=== PATIENT | male | born 1945 | race Caucasian/White ===

== ENCOUNTER 2024-06-07 11:43 | Emergency (ER) | payer MEDICARE, SELFPAY ==
[2024-06-07 12:02] VITALS: BP 142/94; PULSE 77; RESP 16; TEMP 37; O2SAT 100
--- NOTE | 2024-06-07 12:12 | ED_ITS ---
HPI - Abdominal Pain General Chief Complaint: Abdominal Pain Stated Complaint: STOMACH PAIN/ARM PAIN Time Seen by Provider: 06/07/24 12:13 Source: patient, RN notes reviewed and old records reviewed Mode of arrival: ambulatory Limitations: no limitations History of Present Illness HPI narrative: 79-year-old male presents to the [facility] with intermittent stomach discomfort and bloating this is been going on for 2 weeks. Patient states that it started after he was shoveling about 2 weeks ago. Has been intermittent. Has taken Mylanta. Denies any fevers. Denies pain currently. Denies any chest pain or shortness of breath. Denies any nausea or vomiting during these episodes. States that it started again last night in middle of the night, unsure of the time, resolved approximately 8:00 a.m. this morning. Had tried calling primary care provider, did not return phone call today Has an appointment scheduled on Tuesday for same complaint. Onset (ago): week(s) (2) Related Data Home Medications ?Medication ?Instructions ?Recorded ?Confirmed ?Last Taken ?Type travoprost 0.004 % eye drops 1 drp EACH EYE QPM 10/26/22 06/07/24 Unknown History timolol maleate 0.5 % eye drops drp 06/07/24 Unknown History Allergies Allergy/AdvReac Type Severity Reaction Status Date / Time No Known Allergies Allergy Verified 06/07/24 12:07 Review of Systems Review of Systems: All systems reviewed & are unremarkable except as noted in HPI and below Constitutional: Constitutional: Reports no additional constitutional complaints ENT: Reports system reviewed and no additional complaints, except as documented Cardiovascular: Cardiovascular: Reports no additional cardiovascular comp laints, Denies chest pain and Denies dyspnea Respiratory: Respiratory: Reports no additional respiratory complaints, Denies chest congestion, Denies cough and Denies dyspnea Gastrointestinal: Gastrointestinal: Reports as per HPI, Reports abdominal pain, Reports belching, Reports bloating and Denies vomiting Musculoskeletal: Musculoskeletal: Reports no additional musculoskeletal complaints Integumentary/Breasts: Skin/Breast: Reports system reviewed and no additional complaints, except as docu [facility] Surgical History Surgical History History of right inguinal hernia repair (2007) History of left inguinal hernia repair (2018) Family History Family History Mother Family history of Alzheimer's disease Other Family history of cardiovascular disease Family history of malignant neoplasm Social History Social History Smoking status: Never smoker Alcohol intake: current Lack of Transportation: No Lack of Food: Never True Current Housing: I Have Housing Concerned About Future Housing: No Difficulty Paying Gas/Electric Bills: No Difficulty Paying for Meds: No Currently Unemployed: No Education: Trade/Vocational Certificate Difficulty w/ Childcare or Family Care: No Comments At the time of my signature, I reviewed and agree with the nursing past medical, surgical, social, and family history. There is no relevant family history pertinent to the patient complaint. Exam Const: General: cooperative, healthy appearing, comfortable, no acute distress, well developed, alert and well nourished Nutritional Appearance: well nourished Orientation/consciousness: patient oriented x3 Limitations: no limitations HENMT: Head: normal to inspection Eyes: General: appearance normal, both eyes and all related structures Alignment and Position: alignment normal Neck: Neck: normal visual inspection, full ROM, no lymphadenopathy and no meningeal signs Chest: Chest palpation & inspection: normal inspection of the chest Resp: Effort & Inspection: normal respiratory effort and able to speak in complete sentences Auscultation: clear to auscultation bilaterally, no crackles, no rales, no rhonchi and no wheezes Cardio: Rate: regular rate GI: GI Palp: No abdominal tenderness, Yes Soft to palpation, No Tenderness to palpation present (GI) and No Guarding due to palpation present (GI) Auscultation: normal bowel sounds Skin: General skin exam: normal color and no rashes or lesions noted Neuro: General: patient oriented x3, gait normal, moves all extremities and no meningeal signs Cognition (Neuro): normal cognition Speech: normal speech Gait exam (Neuro): Normal gait present Extrem: General: normal to inspection, full ROM, capillary refill normal and normal gait Psych: Appearance: grossly normal and well kempt Mental Status: mental status grossly normal Speech and movement: Normal speech and movement present and Clear speech present Affect: normal affect Attitude: cooperative Course Course Level of Care: Express Care Visit Vital Signs Vital signs: Vital Signs Temperature 98.6 F 06/07/24 12:02 Pulse Rate 77 06/07/24 12:02 Respiratory Rate 16 06/07/24 12:02 Blood Pressure 142/94 H 06/07/24 12:02 Pulse Oximetry 100 06/07/24 12:02 Temperature 98.6 F 06/07/24 12:02 Pulse Rate 77 06/07/24 12:02 Respiratory Rate 16 06/07/24 12:02 Blood Pressure 142/94 H 06/07/24 12:02 Pulse Oximetry 100 06/07/24 12:02 Reviewed MDM - Abdominal Pain MDM Narrative Medical decision making narrative: Patient presents with , sitting comfortably in exam room. Nontoxic, vitals stable except blood pressure mildly elevated Patient presents with intermittent abdominal discomfort for 2 weeks associated with some bloating. States that he takes Mylanta and the symptoms improved. Has an appointment Tuesday with his primary care provider Denies any signs or symptoms currently during exam. No acute findings noted on exam. Patient appropriate for outpatient treatment with signs and symptoms proceed to the emergency room which him and his both verbalized understand Discharge instructions reviewed with patient, as well as provided in writing per nursing staff. The instructions also include specific and strict return/GO TO THE ER as well as f/u information. All questions have been answered, and the patient deny any further questions with discharge and discharge plan. Some parts of this dictation were generated by voice recognition software and may contain typographical and/or grammatical inaccuracies. Differential Diagnosis Differential diagnosis: Likely abdominal pain, constipation, diverticulitis, endometriosis, gastroenteritis, pancreatitis, small bowel obstruction and other (Cholecystitis, cholelithiasis) Critical Care Time Critical Care Time Critical Care Time: No Discharge Plan Discharge Clinical Impression: Intermittent abdominal pain Patient Disposition: Home, Self-Care Condition: Stable Instructions: Antibiotic Form, Gallstones (ED), Acute Abdominal Pain (ED) Additional Instructions: Keep your diet very simple. Nothing fried, greasy, spicy or highly processed Follow-up with primary care provider as already scheduled For new or worsening symptoms go directly to the emergency room Patient Language: Greek Prescriptions: No Action timolol maleate 0.5 % drops travoprost 0.004 % drops 1 drp EACH EYE QPM ipratropium bromide 42 mcg (0.06 %) spray,non-aerosol 2 spray intranasal TID PRN (Reason: runny nose) Qty: 15 5RF Rx Instructions: administer into each nostril alprazolam 0.5 mg tablet 0.5 mg PO BID PRN (Reason: anxiety) Qty: 15 0RF ciprofloxacin-dexamethasone 0.3-0.1 % drops,suspension 3 drp EACH EAR BID Qty: 7.5 0RF Follow-up/Referrals: Maximiliano Martinez MD [Primary Care Provider] - 1 Week ([facility] follow- up) Time of Disposition: 12:26
== END 2024-06-07 12:32 | disposition home or self-care (01) ==
PROVIDERS: Emergency Provider Nurse Practitioner; PCP Family Medicine Adolescent Medicine
DX: R10.9 Unspecified abdominal pain (principal)
CPT/HCPCS: 99211; G0463

== ENCOUNTER 2024-06-29 09:21 | Outpatient (CLI) | payer MEDICARE, SELFPAY ==
--- NOTE | 2024-06-29 09:27 | EST_ITS ---
Patient Info Name: Ishaan Wilson Age: 79 years : 1945 Gender: Male Ht: 71 in Wt: 180 lbs BSA: 2.03 m2 HR: 81 bpm BP: 132 / 97 mmHg Exam Date: 06/29/2024 9:47 AM Exam Location: Echo Lab Patient Status: Outpatient Admit Date: 06/29/2024 Staff Ordering Physician: Maximiliano Martinez MD Electrical Automation Engineer: Sasha Hendrickson RDCS Attending Provider: DR. ELLIOTT Referring Physician: Juan MARTINEZ; Exercise Technologist: Sasha Hendrickson RDCS Exercise Physician: Paul Elliott DO Exam Type: CA stress echo Study Info Indications R07.9 - Chest pain, unspecified Treadmill exercise stress echocardiogram is performed. Summary 1. 1. Negative Iraj exercise stress test for ischemic ST changes by ECG criteria. 2. 2. Poor functional capacity, achieving 4 METs of workload. 3. 3. Rapid HR response to exercise. 4. 4. Appropriate HR recovery at 1 minute post exercise. 5. 5. Abnormal stress echocardiogram for ischemia by wall motion analysis suggesting LM or triple vessel disease. 6. 6. Patient informed of the above results. Stress Echo Findings Left Ventricle LV more dilated with stress test and EF decreased to global 15-20%. Left Ventricle LV moderately dilated with global LV dysfunction with EF 35-40%. Protocol: Iraj Stress ECG Details Stage: REST Duration (min): 1 min : 5 sec Speed (mph): 0.0 Grade (%): 0 HR (bpm): 81 SBP (mmHg): 132 DBP (mmHg): 97 METS: --- Stage: REST Duration (min): 14 min : 9 sec Speed (mph): 0.0 Grade (%): 0 HR (bpm): 90 SBP (mmHg): 132 DBP (mmHg): 97 METS: --- Stage: STAGE 1 Duration (min): 1 min : 0 sec Speed (mph): 1.7 Grade (%): 10 HR (bpm): 121 SBP (mmHg): 132 DBP (mmHg): 97 METS: --- Stage: STAGE 1 Duration (min): 2 min : 0 sec Speed (mph): 1.7 Grade (%): 10 HR (bpm): 140 SBP (mmHg): 132 DBP (mmHg): 97 METS: --- Stage: STAGE 1 Duration (min): 2 min : 1 sec Speed (mph): 0.0 Grade (%): 0 HR (bpm): 141 SBP (mmHg): 132 DBP (mmHg): 97 METS: --- Stage: RECOVERY Duration (min): 0 min : 58 sec Speed (mph): 0.0 Grade (%): 0 HR (bpm): 134 SBP (mmHg): 120 DBP (mmHg): 47 METS: --- Stage: RECOVERY Duration (min): 1 min : 58 sec Speed (mph): 0.0 Grade (%): 0 HR (bpm): 129 SBP (mmHg): 120 DBP (mmHg): 47 METS: --- Stage: RECOVERY Duration (min): 2 min : 58 sec Speed (mph): 0.0 Grade (%): 0 HR (bpm): 119 SBP (mmHg): 146 DBP (mmHg): 66 METS: --- Stage: RECOVERY Duration (min): 3 min : 58 sec Speed (mph): 0.0 Grade (%): 0 HR (bpm): 114 SBP (mmHg): 146 DBP (mmHg): 66 METS: --- Stage: RECOVERY Duration (min): 4 min : 8 sec Speed (mph): 0.0 Grade (%): 0 HR (bpm): 111 SBP (mmHg): 146 DBP (mmHg): 66 METS: --- Rest HR: 90 bpm Peak HR: 142 bpm Rest Sys BP: 132 mmHg Peak Sys BP: 146 mmHg Max Pred HR: 142 bpm % Max Pred HR: 100 % Target HR: 121 bpm Max RPP: 20,732 bpm*mmHg Blackman Score: -14 Termination Reason: Reached target heart rate or workload Cardiac Symptoms: Shortness of breath Max ST Seg Deviation: 3.30 mm Total Time: 2 min : 1 sec Rest Solis BP: 97 mmHg Peak Solis BP: 66 mmHg Angina Score: None Total METS: 4.6 Resting ECG Sinus rhythm, frequent PVC's, RBBB, LAFB. Stress ECG No ST changes. Arrhythmias None. Report Signatures Stress ECG Echo
== END 2024-06-29 09:22 | disposition home or self-care (01) ==
PROVIDERS: PCP Family Medicine Adolescent Medicine; Visit Provider Family Medicine Adolescent Medicine
DX: R07.9 Chest pain, unspecified (principal)
CPT/HCPCS: 93351

== ENCOUNTER 2024-07-17 00:15 | Day surgery (SDC) | payer MEDICARE, SELFPAY ==
[2024-07-16 09:54] VITALS: BMI 25.1
[2024-07-17] VITALS (13 sets, daily range): BP systolic 100–139; BP diastolic 59–85; PULSE 60–77; RESP 13–20; TEMP 36.4–36.6; O2SAT 97–100; BMI 24.1
[2024-07-17 09:13] LABS: Basophils Absolute Auto 0.1 K/mm3 (0.0-0.1); Basophils Percent Auto 0.9 % (0.2-1.2); Eosinophils Absolute Auto 0.1 K/mm3 (0-0.3); Immature Granulocyte Absolute 0.02 K/mm3 (0.00-0.031); Immature Granulocyte Percent A 0.4 % (0-0.5); Lymphocytes Absolute Auto 1.11 K/mm3 (0.9-3.2); Lymphocytes Percent Auto 20.6 % (18.3-44.2); Mean Corpuscular HGB Conc 32.6 g/dl (32-36); Mean Corpuscular Hemoglobin 31.2 pg (26-34); Mean Corpuscular Volume 95.6 fl (80-100); Mean Platelet Volume 11.1 fl (7.4-10.4); Monocytes Absolute Auto 0.5 K/mm3 (0.1-0.6); Monocytes Percent Auto 8.7 % (2.6-8.5); Neutrophils Absolute Auto 3.6 K/mm3 (1.3-6.7); Neutrophils Percent Auto 67.4 % (45.5-73.1); Platelet Count Result 181 k/mm3 (150-375); Red Blood Count 4.81 M/mm3 (4.6-6.20); Red Cell Distribution Width 13.8 % (11.5-14.5); White Blood Count 5.4 K/mm3 (4.5-10.0)
[2024-07-17 09:23] LABS: Anion Gap 7 mmol/L (4-12); Blood Urea Nitrogen 20 mg/dL (9-20); Carbon Dioxide 29 mmol/L (22-30); Chloride 103 mmol/L (98-107); Estimated CRCL calculation 58 ml/min; Estimated Glomerular Filt Rate > 60; Glucose 104 mg/dL (65-110); Sodium 139 mmol/L (137-145)
--- NOTE | 2024-07-17 09:36 | P.SEDATION_ITS ---
Moderate Sedation Note-Pt Data Patient Data Diagnosis: Coronary artery disease Present Complaint: Coronary artery disease Procedure to be performed/Plan: Coronary angiography, left heart cath, +/- PCI Allergies Allergy/AdvReac Type Severity Reaction Status Date / Time No Known Allergies Allergy Verified 07/17/24 09:00 Home Medications ?Medication ?Instructions ?Recorded ?Confirmed ?Type travoprost 0.004 % eye drops 1 drp EACH EYE QPM 10/26/22 07/16/24 History ipratropium bromide 42 mcg (0.06 2 spray intranasal TID PRN runny 11/07/23 07/16/24 Rx %) nasal spray nose #15 mL timolol maleate 0.5 % eye drops 1 drp EACH EYE Q12H 06/07/24 07/16/24 History aspirin 81 mg tablet,delayed 81 mg PO DAILY 06/29/24 07/16/24 History release atorvastatin 10 mg tablet (Lipitor) 10 mg PO DAILY #30 tabs 06/29/24 07/16/24 Rx metoprolol succinate 25 mg 25 mg PO DAILY #30 tabs 06/29/24 07/16/24 Rx tablet,extended release 24 hr nitroglycerin 0.4 mg sublingual 0.4 mg sublingual Q5M PRN chest 06/29/24 07/16/24 Rx tablet pain #25 tabs sacubitril 24 mg-valsartan 26 mg 1 tablet PO BID #60 tabs 06/29/24 07/16/24 Rx tablet (Entresto) Sedation/Anesthesia: No previous sedation/anesthesia problems (including family history). [facility] Surgical History Surgical History History of right inguinal hernia repair (2007) History of left inguinal hernia repair (2017) Family History Family History Mother Family history of Alzheimer's disease Other Family history of cardiovascular disease Family history of malignant neoplasm Social History Social History Smoking status: Never smoker Alcohol intake: current Drinks per week: 1 Substance use type: does not use Lack of Transportation: No Lack of Food: Never True Current Housing: I Have Housing Concerned About Future Housing: No Difficulty Paying Gas/Electric Bills: No Difficulty Paying for Meds: No Currently Unemployed: No Education: Trade/Vocational Certificate Difficulty w/ Childcare or Family Care: No Living arrangements: with family Spiritual care concerns: No Mod Sed Physical Exam Physical Exam Pre Procedural Exam: Normal: Appearance, Lungs, Heart Size, Heart Rate, Extremities and Skin Hours since solid foods: 12 Hours since liquid intake: 8 Mallampati Classification: class III Internal Medicine - PN: Obj Da Vital Signs Vital Signs: Vital Signs - 24 hr 07/17/24 08:58 Temperature 36.6 C Pulse Rate 65 Respiratory Rate 16 Blood Pressure 139/81 Pulse Oximetry 100 Oxygen Delivery Room Air Labs 07/17/24 09:06 07/17/24 09:06 Labs: Laboratory Results - last 24 hr 07/17/24 09:06 WBC 5.4 RBC 4.81 Hgb 15.0 Hct 46.0 MCV 95.6 MCH 31.2 MCHC 32.6 RDW 13.8 Plt Count 181 MPV 11.1 H Immature Gran % (Auto) 0.4 Neut % (Auto) 67.4 Lymph % (Auto) 20.6 [place] % (Auto) 8.7 H Eos % (Auto) 2.0 Baso % (Auto) 0.9 Lymph # (Auto) 1.11 [place] # (Auto) 0.5 Eos # (Auto) 0.1 Baso # (Auto) 0.1 Abs Immat Gran (auto) 0.02 Absolute Neuts (auto) 3.6 Absolute Nucleated RBC 0.000 Nucleated RBC % 0.0 Sodium 139 Potassium 4.0 Chloride 103 Carbon Dioxide 29 Anion Gap 7 BUN 20 Creatinine 0.99 Estim Creat Clear Calc 58 Estimated GFR > 60 Glucose 104 Calcium 9.0 ASA Classification/Sedation ASA Classification/Sedation ASA Class: III Emergent: No Risks: Risks, benefits and alternatives explained and patient/family accepted plan for sedation. Patient re-evaluated immediately prior to sedation.
--- NOTE | 2024-07-17 09:36 | WPDHPUPDATE1 ---
History and Physical Update Update Date/Time: 07/17/24 09:36 History and Physical has been reviewed, including an updated exam of the patient. There are NO changes in the patient's condition. Risks, benefits, and alternatives have been discussed and questions answered. Patient agrees to proceed with procedure.
--- NOTE | 2024-07-17 10:30 | WPDCARDPROC ---
Cardiac Cath Procedure Note Date of procedure:: 07/17/24 Performing physician:: CATHETERIZATION LABORATORY REPORT Procedure Date: 07/17/2024 Nurse'S Assistant: Kevin Grace M.D., [facility]? Referring Physician: Paul Maharaj M.D. ? Anesthesia: Versed and Fentanyl were ordered and given in my presence at 10:10, procedure ended at 10:25. Supervision of nurse monitored moderate sedation with Versed and Fentanyl was provided for 15 minutes. Total of Versed 1mg and Fentanyl 50mcg were administered by the Family Service Assistant RN Beatrice Zhang. Pre-op Diagnosis: Coronary artery disease Post-op Diagnosis: 1. Two vessel coronary artery disease with significant obstructive disease in the proximal-mid LAD and WATER TAXI BOAT MATE of the mid LCX with [id number] and [id number] collaterals. 2. Mildly elevated left ventricular end-diastolic pressure of 17mmHg. Procedure(s): 1. Moderate sedation 2. Ultrasound-guided access of the right radial artery 3. Coronary angiography 4. Left heart cath Access Site: Right radial artery Brief History and Clinical Indications: Patient is a 79 year old male who is referred for [facility] for HFrEF and abnormal stress test. Stress echocardiogram showed baseline global systolic dysfunction with EF 35-40%. Exercised for 2 minutes. Abnormal echo portion with global dilation and EF dropped to 15-20%. All risks, benefits and alternatives to left heart catheterization with or without percutaneous coronary intervention was discussed at length with the patient. Risk of complications including but not limited to bleeding, infection, arrhythmia, stroke, worsening kidney function, blood loss, groin hematoma, limb loss, emergency coronary artery bypass grafting, and even were discussed with the patient and all questions were answered. The patient understood and wished to proceed. Time out called, patient name, date of , medical record number, allergies, procedure performed, identify Nurse'S Assistant, patient and staff member concurred with accurate data, procedure carried on. Findings: LEFT HEART CATHETERIZATION FINDINGS: 1. Left main: The left main coronary artery is widely patent without any significant obstructive disease. 2. Left anterior descending: Heavy calcifications seen in the proximal LAD. The proximal LAD at the level of the bifurcation of the first diagonal branch has an 80% stenosis. The first diagonal branch is a small caliber vessel with ostial 90-99% stenosis. The mid LAD has an 80% stenosis. There is a moderate 50% stenosis in the distal LAD. 3. Left circumflex: The left circumflex artery is WATER TAXI [employer]AT MATE in the mid portion. There are [id number] and siezj-ov-eufw collaterals to the distal LCX/OM territory. 4. Right coronary artery: The RCA is the dominant vessel. There is mild disease in the mid portion. There are fpzxw-[id number]-jrhw collaterals to the LCX/OM territory. 5. Left ventricle: A. End-diastolic pressure 17 mmHg. B. LV gram deferred. C. No significant gradient across aortic valve on catheter pullback. Description of Procedure: Informed consent signed and placed in the chart. Patient transferred to laborer wharf room. Prepped and draped in usual sterile fashion. 2% lidocaine injected subcutaneously in right wrist area. 22-gauge venipuncture catheter used to access the right radial artery under ultrasound guidance. 6-FR slender sheath placed in right radial artery. Nitroglycerine and Verapamil were given intraarterial through the sheath. Versacore wire advanced under fluoroscopy 5F Tig 4 diagnostic catheter engaged Left Main Coronary Artery. 5F FR 4 diagnostic catheter engaged Right Coronary Artery Multiple orthogonal angiogram obtained and reviewed 5F Pigtail diagnostic catheter crossed aortic valve to obtain LVEDP, LV angiogram deferred. Hemostasis was achieved by application of TR band. Disposition: Home Plan: The patient will be monitored in the recovery area. Will discuss the above findings with the referring physician. Continue aggressive medical therapy and risk factor modification. ? Kevin Grace M.D. Interventional Cardiology
== END 2024-07-17 13:55 | disposition home or self-care (01) ==
PROVIDERS: PCP Family Medicine Adolescent Medicine; Visit Provider Internal Medicine
PROC: 4A023N7 Measurement of Cardiac Sampling and Pressure, Left Heart, Percutaneous Approach (ICD-10-PCS; CPT 93452; principal; 2024-07-17 10:00)
DX: I25.10 Atherosclerotic heart disease of native coronary artery without angina pectoris (principal); R94.39 Abnormal result of other cardiovascular function study; I50.9 Heart failure, unspecified
CPT/HCPCS: 36415; 80048; 85025; 93458; C1769; C1887; C1894; J1644; J2003; J2250; J2305; J3010; J7040